=== PATIENT | female | born 1995 | race Two or more races ===

== ENCOUNTER 2023-11-27 00:53 | Emergency (ER) | payer OTHER, SELFPAY ==
[2023-11-27 01:05] VITALS: BP 186/130; PULSE 81; RESP 20; TEMP 36.8; O2SAT 100
--- NOTE | 2023-11-27 01:06 | ED.ABDPAIN ---
HPI - Abdominal Pain General Chief Complaint: Abdominal Pain Stated Complaint: abd cramping Time Seen by Provider: 11/27/23 00:58 History of Present Illness HPI narrative: patient presents here with suprapubic pain, any increased urinary frequency and burning when she urinates. Denied any vaginal discharge or concerns for STDs. Has an IUD. Also currently on her period and sometimes has pain with this but this is worse today Related Data Allergies Allergy/AdvReac Type Severity Reaction Status Date / Time No Known Allergies Allergy Verified 11/27/23 01:04 Review of Systems Review of Systems: All systems reviewed & are unremarkable except as noted in HPI and below Exam Narrative: EXAMINATION OF ORGAN SYSTEMS/BODY AREAS: Constitutional: Vital signs per nursing GENERAL:[No acute distress, non-toxic appearing.] HEAD: Normal with no signs of head trauma. EYES: EOMI, conjunctiva normal ENT: Hearing grossly intact LUNGS: Nonlabored breathing. HEART: [Regular rate and rhythm] ABD: [Soft], [nontender to palpation] EXT: Normal range of motion SKIN: [No rashes or lesions.] NEURO: [Alert and oriented x 3. No gross focal sensory or strength deficits.] PSYCH: Normal affect Course Vital Signs Vital signs: Vital Signs Temperature 98.3 F 11/27/23 01:05 Pulse Rate 81 11/27/23 01:05 Respiratory Rate 20 11/27/23 01:05 Blood Pressure 186/130 H 11/27/23 01:05 Pulse Oximetry 100 11/27/23 01:05 Oxygen Delivery Room Air 11/27/23 01:05 Temperature 98.3 F 11/27/23 01:05 Pulse Rate 81 11/27/23 01:05 Respiratory Rate 20 11/27/23 01:05 Blood Pressure 186/130 H 11/27/23 01:05 Pulse Oximetry 100 11/27/23 01:05 Oxygen Delivery Room Air 11/27/23 01:05 MDM - Abdominal Pain MDM Narrative Medical decision making narrative: 27 year-old patient presenting with suprapubic pain and urinary symptoms consistent with UTI. Urinalysis is obtained and positive for signs of infection. Urine culture sent. [ test is negative.] Patient started on Macrobid and strongly advised to return for any increasing or worsening pain, fevers or vomiting. They expressed understanding of instructions and is discharged in stable condition. she has no back pain or CVA tenderness I have low concern for pyelonephritis. Lab Data Labs: Lab Results 11/27/23 Range/Units 01:05 Urine Color [place] H (Yellow) Urine Appearance Cloudy H (Clear) Urine pH 6.5 (5.0-9.0) Ur Specific [place] 1.020 (1.001-1.035) Urine Protein 2+ H (Negative) mg/dL Urine Glucose (UA) Negative (Negative) mg/dL Urine Ketones Negative (Negative) mg/dL Ur Blood (Man) 3+ H (Negative) Urine Nitrate Negative (Negative) Urine Bilirubin Negative (Negative) Urine Urobilinogen 1.0 (<2.0) mg/dL Leukocyte Esterase Rfl 2+ H (Negative) FADIA/UL Urine RBC >100 H (0-2) /hpf Urine WBC >100 H (0-3) /hpf Ur Squamous Epith Cells None seen (Few) /hpf Urine Bacteria 1+ H /hpf Urine Casts 0-2 Discharge Plan Discharge Clinical Impression: UTI (urinary tract infection) Patient Disposition: Home, Self-Care Condition: Stable Instructions: Antibiotic Form, Urinary Tract Infection in Women (ED), Hypertension (ED) Additional Instructions: Please take the antibiotics prescribed, and follow-up with primary care doctor. Come back to the emergency room if you feel worse. You had high blood pressure in the emergency room today, please follow-up with the primary care doctor about this. Prescriptions: New nitrofurantoin monohyd/m-cryst [Macrobid] 100 mg capsule 100 mg PO Q12H 5 Days Qty: 10 0RF Rx Instructions: must administer with a meal/food ibuprofen 600 mg tablet 600 mg PO TID PRN (Reason: fever or pain) Qty: 30 0RF Follow-up/Referrals: PHYSICIAN,[facility] [Non-Staff] - Grayson Horta MD [Physician] - 2 Days
[2023-11-27 01:22] LABS: Bacteria Urine 1+ /hpf; Non Pathogenic Casts 0-2; RBC Urine >100 /hpf (0-2); Squamous Epithelial Cell Urine None Seen /hpf (Few); WBC Urine >100 /hpf (0-3)
[2023-11-27 01:43] LABS: Appearance Urine Cloudy (Clear); Bilirubin Urine Negative (Negative); Blood Urine 3+ (Negative); Color Urine Orange (Yellow); Glucose Urine UA Negative (Negative); Ketones Urine Negative (Negative); Leukocyte Esterase Ur 2+ LEU/UL (Negative); Nitrate Urine Negative (Negative); Protein Urine 2+ mg/dL (Negative); pH Urine 6.5 (5.0-9.0)
[2023-11-27 01:44] LABS: Add Urine Microscopic? YES
[2023-11-27] MEDS: NITROFURANTOIN MONOHYD MACROCR 100 MG CAP PO (01:59)
[2023-11-27] MEDS: KETOROLAC 30 MG/ML VIAL (*BKC) IM (02:00)
--- NOTE | 2023-11-27 02:29 | PC.NURSE ---
edp dr. ch aware of patient htn upon discharge. edp verbalized okay for discharge.
== END 2023-11-27 02:29 | disposition home or self-care (01) ==
PROVIDERS: Emergency Provider Emergency Medicine
DX: N39.0 Urinary tract infection, site not specified (principal)
CPT/HCPCS: 81001; 81025; 87077; 87086; 87088; 87186; 96372; 99283; A9270; J1885